=== PATIENT | female | born 1960 | race Two or more races ===

== ENCOUNTER → 2024-11-07 | Outpatient (CLI) | payer MEDICARE, MEDICAID, SELFPAY ==
--- NOTE | 2024-11-07 10:00 | XR_ITS ---
Examination: Abdomen sonogram, Limited Date and time of exam: November 07, 2024 0954 hrs. Indications: Chronic hepatitis C Technique: Real-time bustos scale transabdominal sonographic images of the upper abdomen obtained. Findings: Normal gallbladder Normal common bile duct 0.5 cm Pancreatic head 2.3 cm Liver 14.3 cm fatty infiltration no focal liver lesions Normal hepatopedal portal venous oh Patent IVC Impression: Normal gallbladder Normal common bile duct Fatty liver
[2024-11-07 12:33] LABS: Hepatitis A Antibody IgM Non Reactive (Non React); Hepatitis B Core Antibody IgM Non Reactive (Non React); Hepatitis B Surface Antigen Non Reactive (Non React); Hepatitis C Antibody Reactive (Non React)
[2024-11-11 03:06] LABS: Hepatitis B Virus DNA* NOT DETECTED
[2024-11-11 06:26] LABS: HCV Genotype, LiPA(R)* 1a; Hepatitis B DNA PCR NOT DETECTED Log IU/mL
== END | disposition home or self-care (01) ==
LOC: CDIM 09:41 → COPL 10:06
PROVIDERS: PCP Internal Medicine Pulmonary Disease; Referring Provider Specialist; Visit Provider Radiology Diagnostic Radiology
DX: K76.0 Fatty (change of) liver, not elsewhere classified (principal); B18.2 Chronic viral hepatitis C
CPT/HCPCS: 36415; 76705; 80074; 87517; 87902

== ENCOUNTER → 2024-11-17 | Outpatient (CLI) | payer MEDICARE, MEDICAID, SELFPAY ==
[2024-11-20 03:07] LABS: HCV RNA, PCR 1250000 IU/mL
== END | disposition home or self-care (01) ==
LOC: COPL 11:43
PROVIDERS: PCP Internal Medicine Pulmonary Disease; Referring Provider Specialist; Visit Provider Specialist
DX: B18.2 Chronic viral hepatitis C (principal)
CPT/HCPCS: 36415; 87522

== ENCOUNTER → 2025-02-02 | Outpatient (CLI) | payer MEDICARE, MEDICAID, SELFPAY ==
[2025-02-04 22:05] LABS: HCV RNA, PCR <15 NOT DETECTED IU/mL
[2025-02-07 07:03] LABS: HCV RNA, PCR Log IU <1.18 NOT DETECTED Log IU/mL
== END | disposition home or self-care (01) ==
LOC: COPL 10:44
PROVIDERS: PCP Internal Medicine Pulmonary Disease; Referring Provider Specialist; Visit Provider Specialist
DX: B18.2 Chronic viral hepatitis C (principal)
CPT/HCPCS: 36415; 87522